=== PATIENT | female | born 1975 | race Caucasian/White ===

== ENCOUNTER 2017-02-06 12:47 | Emergency (ER) | payer OTHER ==
[~2017-02-06] VITALS: Ht 160 cm; Wt 104.3 kg
[~2017-02-06 12:47] MED LIST: ELAVIL PO; IBUPROFEN800 MG PO; PLAQUENIL200 MG PO
[2017-02-06 12:53] VITALS: BP 132/90
--- NOTE | 2017-02-06 13:50 | ED SKIN/ALLERGY COMPLAINT ---
History of Present Illness General Chief Complaint: Laceration Procedure Stated Complaint: LAC TO L HAND Source: patient Exam Limitations: no limitations Vital Signs & Intake/Output Vital Signs & Intake/Output Vital Signs Date Time Temp Pulse Resp B/P B/P Pulse O2 O2 Flow FiO2 Mean Ox Delivery Rate 02/06 1253 97.2 62 16 132/90 98 Room Air Allergies Coded Allergies: MDX - Opioid (Opioid) (UPSET STOMACH 06/09/14) Reconcile Medications Hydroxychlorquine (Plaquenil) 200 MG TAB 1 TAB PO BID IMMUNE SUPPORT Ibuprofen 800 MG TAB 800 MG PO Q6P PRN PAIN SCALE 1-4 Triage Note: PT TO ED FOR LAC TO PROXIMAL PORTION OF L INDEX FINGER. LAST TETANUS 3 YEARS AGO. BLEEDING CONTROLLED, NEW DRESSING APPLIED IN TRIAGE. Triage Nurses Notes Reviewed? yes : No Patient currently breastfeeds: No HPI: This patient is a 41-year-old female who presented to the emergency department today for evaluation of a laceration to her left hand. She reported that she was with her dog and accidentally hit her hand on the door. She reported that it was bleeding, but the bleeding seems to have subsided. She reported that the area does stain, but denied any pain. She denied any decrease in ability to move her fingers after the incident. She denied any numbness or tingling in her extremities. Movement makes the discomfort worse. Past History Travel History Traveled to [place] past 21 day No Medical History Any Pertinent Medical History? see below for history Neurological: NONE EENT: NONE Cardiovascular: NONE Respiratory: NONE Gastrointestinal: NONE Hepatic: NONE Renal: NONE Musculoskeletal: REYNAUDS SYNDROME SJOGRES SYNDROME DERMATOMIOCYTIS Psychiatric: NONE Endocrine: NONE History of MRSA: No History of VRE: No History of CDIFF: No Surgical History Surgical History: non-contributory Psychosocial History Who do you live with Family What is your primary language [place] Tobacco Use: Quit >30 days ago Family History Hx Contributory? No Review of Systems Review of Systems Constitutional: Reports: no symptoms. EENTM: Reports: no symptoms. Respiratory: Reports: no symptoms. Cardiovascular: Reports: no symptoms. GI: Reports: no symptoms. Musculoskeletal: Reports: no symptoms. Skin: Reports: see HPI. Neurological/Psychological: Reports: no symptoms. All Other Systems: Reviewed and Negative Physical Exam Physical Exam General Appearance: well developed/nourished, no apparent distress, alert, awake Comments: Well-developed well-nourished person in no acute distress HEENT: Head normocephalic, moist mucous membranes Neck: Supple, no lymphadenopathy Back: Normal gait Respiratory: No respiratory distress. Speaking in full sentences Extremities: No edema, full range of motion Neuro: Alert and oriented x3 Psych: Mood affect normal, normal memory normal judgment. Skin: Warm and dry, no rash on exposed skin. Approximately 1.5 cm in length skin tear to the dorsum of the left hand at the base of the second digit with mild amount of active bleeding, no foreign body in the wound site, and no surrounding erythema or edema Progress Differential Diagnosis: abscess/cellulitis, skin tear, skin avulsion, skin laceration, tendon injury Plan of Care: This patient is a 41-year-old female who presented to the emergency department today for evaluation of the skin tear to the dorsum of her left hand. Bleeding well controlled. No foreign body in the wound site. The wound was irrigated extensively with normal saline, approximately 700 mL. Prepped with Betadine. Bacitracin was applied and sterile dressing applied. This patient is stable for discharge home. Departure Departure Disposition: HOME OR SELF CARE Condition: Stable Clinical Impression Primary Impression: Skin tear Referrals: BRITTANY ACKERMAN APRN (PCP/Family) Additional Instructions: Keep the wound site clean and dry. You may keep the wound covered and reapply bacitracin once or twice daily over the next 3-4 days. After that time he may keep the wounds uncovered as long as it is not getting dirty please return to the emergency department for any worsening symptoms, spreading of redness around the wound site, pus drainage from the wound site, excessive pain, fevers, or for any other concerns.. Departure Forms: Customer Survey General Discharge Information
== END 2017-02-06 14:05 ==
LOC: ERH 12:47
DX: S61.412A Laceration without foreign body of left hand, initial encounter (principal); W22.01XA Walked into wall, initial encounter; Y92.9 Unspecified place or not applicable; Y93.9 Activity, unspecified